=== PATIENT | female | born 1990 | race Caucasian/White ===

== ENCOUNTER 2019-01-27 18:43 | Emergency (ER) | payer MEDICAID ==
[~2019-01-27] VITALS: Ht 154.9 cm; Wt 59.0 kg
[2019-01-27 19:07] VITALS: Ht 154.9 cm; Wt 59.0 kg
[2019-01-27] MEDS ORDERED: ONDANSETRON 4 MG INJ IV STA (21:36)
[2019-01-27] MEDS ORDERED: KETOROLAC 15 MG INJ IV STA (21:36)
[2019-01-27] MEDS ORDERED: SOD CHLORIDE 0.9% 1,000 ML IV STA (21:36)
[2019-01-27] MEDS ORDERED: ONDA4TAB14 PO (23:28)
--- NOTE | 2019-01-27 23:35 | ERD ---
ER Documentation Chief Complaint Chief Complaint RLQ WITH RICHARDSON X 1 WEEK, +NAUSEA/DIARRHEA HPI 28-year-old female with a second past medical history presents to the ED complaining of nausea, vomiting, diarrhea x1 week. Patient states she has multiple episodes of loose watery stools a day. No melena or hematochezia. Patient states her daughter has similar symptoms. She denies any recent travel or antibiotics. No fevers or chills. Patient also is complaining of right lower pelvic "pinching" pain since 4 days ago. She denies any vaginal bleeding or vaginal discharge. She states she has been having vaginal intercourse. Her last mitral cycle was 2 weeks ago. Patient also complaining of a sharp right- sided headache radiating down to her posterior scalp. Headache is pounding. No changes in vision. No focal logical deficits. No other complaints. ROS All systems reviewed and are negative except as per history of present illness. Medications Home Meds Active Scripts Ibuprofen* (Motrin*) 600 Mg Tab, 600 MG PO Q6H PRN for PAIN AND OR ELEVATED TEMP, #30 TAB Prov:KATHY LUNDY PA-C 01/27/19 Ondansetron (Ondansetron Odt) 4 Mg Tab.rapdis, 4 MG PO Q6H PRN for NAUSEA AND/OR VOMITING, #10 TAB Prov:KATHY LUNDY-Veronika 01/27/19 Allergies Allergies: Coded Allergies: No Known Drug Allergies (Verified Allergy, Unknown, 01/27/19) PMhx/Soc Medical and Surgical Hx: pt denies Medical Hx, pt denies Surgical Hx Hx Alcohol Use: No Hx Substance Use: No Hx Tobacco Use: No Smoking Status: Never smoker Physical Exam Vitals Vital Signs Date Temp Pulse Resp B/P (MAP) Pulse Ox O2 O2 Flow FiO2 Time Delivery Rate 01/27/19 98.3 85 18 136/98 99 19:07 (111) Physical Exam Const: No acute distress Head: Atraumatic Eyes: Normal Conjunctiva. EOMI. PERRL. ENT: Normal External Ears, Nose and Mouth. Neck: Full range of motion. No meningismus. Resp: Clear to auscultation bilaterally Cardio: Regular rate and rhythm, no murmurs Abd: Soft, + mild right pelvic tenderness palpation. No rebound, no guarding. Negative McBurney's. Negative Hernandez's. Non distended. + Hyperactive bowel sounds. Skin: No petechiae or rashes Back: No midline or flank tenderness Ext: No cyanosis, or edema Neuro: M/S: Alert and oriented Face: EOMI, face and pharynx with normal sensation and function Motor: Normal strength throughout Sensation: Normal sensation throughout Speech: Normal Cerebel: Normal coordination Normal gait Psych: Normal Mood and Affect Result Diagram: 01/27/19223301/27/192233 Results 24 hrs Laboratory Tests Test 01/27/19 22:29 01/27/19 22:34 POC Beta HCG, Qualitative NEGATIVE White Blood Count 8.6 10^3/ul Red Blood Count 4.81 10^6/ul Hemoglobin 14.3 g/dl Hematocrit 42.4 % Mean Corpuscular Volume 88.1 fl Mean Corpuscular Hemoglobin 29.7 pg Mean Corpuscular Hemoglobin Concent 33.7 g/dl Red Cell Distribution Width 11.9 % Platelet Count 295 10^3/UL Mean Platelet Volume 10.6 fl Immature Granulocytes % 0.200 % Neutrophils % 63.7 % Lymphocytes % 25.9 % Monocytes % 8.1 % Eosinophils % 1.6 % Basophils % 0.5 % Nucleated Red Blood Cells % 0.0 /100WBC Immature Granulocytes # 0.020 10^3/ul Neutrophils # 5.5 10^3/ul Lymphocytes # 2.2 10^3/ul Monocytes # 0.7 10^3/ul Eosinophils # 0.1 10^3/ul Basophils # 0.0 10^3/ul Nucleated Red Blood Cells # 0.0 10^3/ul Urine Color YELLOW Urine Clarity SLIGHTLY CLOUDY Urine pH 5.0 Urine Specific Sterling 1.024 Urine Ketones 1+ mg/dL Urine Nitrite NEGATIVE mg/dL Urine Bilirubin NEGATIVE mg/dL Urine Urobilinogen NEGATIVE mg/dL Urine Leukocyte Esterase NEGATIVE Romain/ul Urine Microscopic RBC 3 /HPF Urine Microscopic WBC 2 /HPF Urine Squamous Epithelial Cells FEW /HPF Urine Bacteria FEW /HPF Urine Mucus FEW /HPF Urine Hemoglobin NEGATIVE mg/dL Urine Glucose NEGATIVE mg/dL Urine Total Protein NEGATIVE mg/dl Sodium Level 139 mmol/L Potassium Level 4.0 mmol/L Chloride Level 103 mmol/L Carbon Dioxide Level 27 mmol/L Anion Gap 9 Blood Urea Nitrogen 11 mg/dl Creatinine 0.66 mg/dl Est Glomerular Filtrat Rate mL/min > 60 mL/min Glucose Level 92 mg/dl Calcium Level 9.1 mg/dl Lipase 87 U/L Serum HCG, Qualitative NEGATIVE Current Medications Medications Dose Sig/Cristóbal Start Time Status Last (Trade) Ordered Route PRN Stop Time Admin Dose Reason Admin Sodium 1,000 ml @ Q1H STAT 01/27/19 DC 01/27/19 Chloride 1,000 mls/hr IV 21:36 22:48 01/27/19 22:35 Ondansetron 4 mg ONCE STAT 01/27/19 DC 01/27/19 HCl (Zofran IV 21:36 22:48 Inj) 01/27/19 21:39 Ketorolac 15 mg ONCE STAT 01/27/19 DC 01/27/19 Tromethamine IV 21:36 22:48 (Toradol) 01/27/19 21:39 Procedures/MDM LABS CBC: no e/o of systemic infection or severe anemia BMP: no e/o severe acidosis, alkalosis, renal failure, diabetic ketoacidosis Urine: no e/o acute infection or hematuria beta hcg: negative DIAGNOSTIC IMAGING: PROCEDURE: US Pelvis. CLINICAL INDICATION: Pain TECHNIQUE: Multiple sonographic images of the pelvis were obtained utilizing a transabdominal technique. The images were reviewed on a PACS workstation. COMPARISON: None. FINDINGS: The uterus is retroverted and measures 8.0 x 4.0 x 5.5 cm. The uterus of normal contour and echogenicity. There is a thin well-demarcated endometrial stripe complex which measures 5.4 millimeters in transverse diameter. There is no fluid in the canal. . The right ovary has a normal echotexture and measures 4.3 x 2.8 x 2.1 cm . The left ovary has a normal echotexture and measures 3.4 x 2.5 x 2.6 cm. No adnexal masses are noted. No solid pelvic masses seen. There is no free fluid in the pelvis. IMPRESSION: Normal uterus and ovaries. ED COURSE: The patient was given IV fluids, Toradol, Zofran The medication was well tolerated and the patient had market improvement in symptoms. The patient remained stable throughout ED course. MEDICAL DECISION MAKING: This is a 28-year-old female presents with multiple complaints. She complains of vomiting and diarrhea. She has no fever here. Vital signs are normal. Abdominal exam is benign. Work-up: CBC, BMP and UA is negative for severe infection or dehydration. Symptoms are likely viral in etiology as her daughter had similar symptoms a week ago. She does not need any antibiotics for this. She felt much better status post IV fluids, Zofran and Toradol. She had no further vomiting episodes here. Patient also complaining of a migraine headache and right pelvic pain. Headache is most consistent with a primary type headache. I have low suspicion for intracranial mass, hemorrhage, skull fracture. In regards to her pelvic pain, ultrasound without any evidence of ovarian torsion or ruptured ovarian cyst. Pelvic pain could be related to ovulation. She is given copies of her work-up and told to follow-up with your primary care physician next week. Strict return precautions were discussed. PRESCRIPTIONS: Ibuprofen, Zofran SPECIALIST FOLLOW UP RECOMMENDED: None Patient has been advised to follow up with primary care in 1-2 days. Departure Diagnosis: Primary Impression: Gastroenteritis Additional Impressions: Headache Headache type: unspecified Headache chronicity pattern: unspecified pattern Intractability: not intractable Qualified Codes: R51 - Headache Pelvic pain Condition: Stable Patient Instructions: Vomiting And Diarrhea, Nonspecific (Adult) Referrals: [facility] YOU HAVE RECEIVED A MEDICAL SCREENING EXAM AND THE RESULTS INDICATE THAT YOU DO NOT HAVE A CONDITION THAT REQUIRES URGENT TREATMENT IN THE EMERGENCY DEPARTMENT. FURTHER EVALUATION AND TREATMENT OF YOUR CONDITION CAN WAIT UNTIL YOU ARE SEEN IN YOUR DOCTORS OFFICE WITHIN THE NEXT 1-2 DAYS. IT IS YOUR RESPONSIBILITY TO MAKE AN APPOINTMENT FOR FOLOW-UP CARE. IF YOU HAVE A PRIMARY DOCTOR --you should call your primary doctor and schedule an appointment IF YOU DO NOT HAVE A PRIMARY DOCTOR YOU CAN CALL OUR PHYSICIAN REFERRAL HOTLINE AT IF YOU CAN NOT AFFORD TO SEE A PHYSICIAN YOU CAN CHOSE FROM THE FOLLOWING [facility] [id number] [facility] [address] [facility] [address] [facility] [facility] [address] [facility]. [facility] [address] [facility]. [facility]. [address] [facility]. [facility] YOU HAVE RECEIVED A MEDICAL SCREENING EXAM AND THE RESULTS INDICATE THAT YOU DO NOT HAVE A CONDITION THAT REQUIRES URGENT TREATMENT IN THE EMERGENCY DEPARTMENT. FURTHER EVALUATION AND TREATMENT OF YOUR CONDITION CAN WAIT UNTIL YOU ARE SEEN IN YOUR DOCTORS OFFICE WITHIN THE NEXT 1-2 DAYS. IT IS YOUR RESPONSIBILITY TO MAKE AN APPOINTMENT FOR FOLOW-UP CARE. IF YOU HAVE A PRIMARY DOCTOR --you should call your primary doctor and schedule and appointment IF YOU DO NOT HAVE A PRIMARY DOCTOR YOU CAN CALL OUR PHYSICIAN REFERRAL HOTLINE AT . IF YOU CAN NOT AFFORD TO SEE A PHYSICIAN YOU CAN CHOSE FROM THE FOLLOWING [facility] INSTITUTIONS: [facility] [address] [place] [address] [facility] [address] [place] [address] [facility] [address] [place] [address] [facility] URGENT CARE/SPECIALTIES Additional Instructions: Keep yourself hydrated with lots of water, Gatorade. Stick to bland diet for the next 3 days. [place] diet includes both vesicles, potatoes, bread, rice, applesauce. Advance diet as tolerated. I am prescribing you Zofran to take as needed. Return here for any worsening symptoms, otherwise follow-up with your PCP. KATHY LUNDY PA-C January 27, 2019 23:35
[2019-01-27] MEDS ORDERED: IBUP-1542 PO (23:36)
[2019-01-27 23:59] VITALS: BP 122/68; PULSE 77; RESP 16
== END 2019-01-28 | disposition home or self-care (01) ==
LOC: FTE 18:43
DX: K52.9 Noninfective gastroenteritis and colitis, unspecified (principal); R10.2 Pelvic and perineal pain
CPT/HCPCS: 36415; 76856; 80048; 81001; 81025; 83690; 84703; 85025; 96374; 96375; J1885; J2405; J7030; Z7502; 81003